=== PATIENT | female | born 1960 | race Caucasian/White ===

== ENCOUNTER 2019-11-11 17:28 | Emergency (ER) | payer BC ==
[~2019-11-11] VITALS: Ht 154.9 cm; Wt 90.9 kg
[~2019-11-11 17:28] MED LIST: ASPIRIN E.C. 8181 MG PO; GLUCOPHAGE1000 MG PO; GLUCOPHAGE500 MG/TAB PO; LIPITOR 40MG TA40 MG PO; LOPRESSOR 225 MG/TAB PO; LUVOX CR100 MG PO; NITROSTAT0.4 MG/TAB SL; PLAVIX 75MG TAB75 MG PO; PRINIVIL20 MG PO; PROVENTIL0.09 MG/A1 IH; TIROSINT150 MC1 PO; TIROSINT50 MCG PO; TOPROL XL 50MG50 MG PO; UNABLE; WELLBUTRIN SR150 M1 PO; ZOCOR 20MG20 MG PO
[2019-11-11 17:35] VITALS: BP 162/81; PULSE 66; TEMP 97.8
== END 2019-11-11 18:23 | disposition home or self-care (01) ==
LOC: COL.ER 17:28
DX: S90.31XA Contusion of right foot, initial encounter (principal); Z79.02 Long term (current) use of antithrombotics/antiplatelets; Z79.84 Long term (current) use of oral hypoglycemic drugs; Z79.82 Long term (current) use of aspirin; W10.9XXA Fall (on) (from) unspecified stairs and steps, initial encounter; Y92.009 Unspecified place in unspecified non-institutional (private) residence as the place of occurrence of the external cause

== ENCOUNTER → 2020-06-13 | Outpatient (CLI) | payer BC ==
[2020-06-13 14:42] LABS: TROPONIN-I < 0.012 ng/mL (0.000-0.035)
== END ==
LOC: ZCOL.LAB 13:58
PROVIDERS: Internal Medicine Interventional Cardiology
DX: Z03.818 Encounter for observation for suspected exposure to other biological agents ruled out (principal); R07.89 Other chest pain